=== PATIENT | female | born 1960 | race Caucasian/White ===

== ENCOUNTER 2017-01-07 18:21 | Emergency (ER) | payer OTHER ==
[~2017-01-07] VITALS: Ht 175.3 cm; Wt 106.1 kg
[2017-01-07 19:28] VITALS: BP 133/81
--- NOTE | 2017-01-07 19:34 | NUR ---
PT TAKEN TO BED 2
--- NOTE | 2017-01-07 19:41 | NUR ---
Dr. Garcia evaluating patient at bedside.
[2017-01-07] MEDS ORDERED: MAG SULF 2000 MG/WATER PREMIX 50 ML IV ONE (19:46)
[2017-01-07] MEDS ORDERED: ALBUTEROL 0.083% 2.5 MG/3 ML NEBU INH ONE (19:46)
[2017-01-07] MEDS ORDERED: methylPREDNISolone SS 125 MG in WATER STERILE 2 ML IV ONE (19:46)
[2017-01-07] MEDS ORDERED: NACL 0.9% 1,000 ML IV ONE (19:46)
--- NOTE | 2017-01-07 19:47 | NUR ---
56YT/F PATIENT PRESENTS TO ED WITH C/O DIFFICULTY BREATHING X 4 DAYS . PT STATES HAVING DIFFICULTY BREATHING X 4 DAYS, NO FEVER, BEEN USING BREATHING TREATMENT, NOT IMPROVE . DENIES N/V/D; SKIN IS PINK/WARM/DRY; AAOX4 WITH EVEN AND STEADY GAIT; LUNGS CLEAR BL; HR EVEN AND REGULAR; PT DENIES ANY FEVER, CP, SOB, OR COUGH AT THIS TIME; PATIENT STATES PAIN OF 6/10 AT THIS TIME; VSS; PATIENT POSITIONED FOR COMFORT; HOB ELEVATED; BEDRAILS UP X2; BED DOWN. ER MD MADE AWARE OF PT STATUS.
--- NOTE | 2017-01-07 20:00 | NUR ---
RT AT BEDSIDE FOR TREATMENT
--- NOTE | 2017-01-07 20:02 | NUR ---
X-Ray at bedside.
[2017-01-07] MEDS ORDERED: AMPICILLIN/SULBACTAM 1.5 GM in NACL 0.9% 50 ML IV ONE (21:45)
[2017-01-07] MEDS ORDERED: AMPICILLIN/SULBACTAM 1.5 GM VIAL ONE (21:54)
--- NOTE | 2017-01-07 22:48 | NUR ---
Patient discharged with v/s stable. Written and verbal after care instructions given and explained. Patient alert, oriented and verbalized understanding of instructions. Ambulatory with steady gait. All questions addressed prior to discharge. ID band removed. Patient advised to follow up with PMD. Rx of PREDNISONE 10 MG, AUGMENTIN 875 MG, CODEINE PHOSPHATE/PROMETHAZINE 10-6.25MG/5ML given. Patient educated on indication of medication including possible reaction and side effects. Opportunity to ask questions provided and answered.
[2017-01-07 22:56] VITALS: BP 142/85
== END 2017-01-07 22:48 | disposition home or self-care (01) ==
LOC: MED 18:21
DX: J20.9 Acute bronchitis, unspecified (principal); R03.0 Elevated blood-pressure reading, without diagnosis of hypertension; Z88.8 Allergy status to other drugs, medicaments and biological substances
CPT/HCPCS: 36415; 71010; 80053; 81002; 81025; 85025; 94640; 96365; 96366; 96368; 96375; 99285; J0295; J2930; J3475; J7030; J7613; Q0092

== ENCOUNTER 2019-10-21 15:18 | Emergency (ER) | payer OTHER ==
[~2019-10-21] VITALS: Ht 175.3 cm; Wt 97.1 kg
[2019-10-21 15:40] VITALS: BP 122/84
--- NOTE | 2019-10-21 15:53 | NUR ---
PATIENT PRESENTS TO ED WITH C/O R 2ND DIGIT PAIN/SWELLING & L 1ST TOE PAIN/SWELLING X 1 MONTH. PT STATES SHE WAS TOLD SHE HAS RAYNAUDS AT [facility]. HX: DM, HTN, ASTHMA, RX: PREGABALIN, ENALAPRIL, ALODIPINE, METFORMIN, NORCO, MONTEL[place]AST, GLIBURIDE, CARVEDILOL, LASIX, ASPIRIN . PATIENT STATES SHARP PAIN OF 10/10 AT THIS TIME; VSS; PATIENT POSITIONED FOR COMFORT; HOB ELEVATED; BEDRAILS UP X2; BED DOWN. ER MD MADE AWARE OF PT STATUS.
--- NOTE | 2019-10-21 16:06 | NUR ---
Patient being evaluated by physician at bedside.
[2019-10-21] MEDS ORDERED: KETOROLAC 60 MG/2 ML VIAL IM ONE (16:10)
[2019-10-21] MEDS ORDERED: DEXAMETHASONE 10 MG/ML VIAL IM ONE (16:10)
[2019-10-21 18:15] VITALS: BP 128/80
--- NOTE | 2019-10-21 18:15 | NUR ---
Patient discharged with v/s stable. Written and verbal after care instructions given and explained. Patient alert, oriented and verbalized understanding of instructions. Ambulatory with steady gait. All questions addressed prior to discharge. ID band removed. Patient advised to follow up with PMD. Rx of Voltaren, Aggrenox 25mg-200mg given. Patient educated on indication of medication including possible reaction and side effects. Opportunity to ask questions provided and answered.
== END 2019-10-21 18:15 | disposition home or self-care (01) ==
LOC: MED 15:18
DX: M25.50 Pain in unspecified joint (principal); Z88.5 Allergy status to narcotic agent; Z88.8 Allergy status to other drugs, medicaments and biological substances
CPT/HCPCS: 96372; 99283; J1100; J1885